=== PATIENT | female | born 1985 | race Two or more races ===

== ENCOUNTER 2025-05-31 11:06 | Inpatient (IN) | payer MEDICAID ==
[~2025-05-31] VITALS: Ht 149.9 cm; Wt 100.0 kg
--- NOTE | 2025-05-31 11:32 | ED.PDOC ---
HPI Comments This is a 40 year old female ELLI presenting to the ED with chief complaint of chest pain. Patient reports that she had started to experience left sided, sharp, 8/10 chest pain this morning with associated radiation to the left arm and SOB. EMS relays that they arrived about 5 minutes later and provided 2 doses of Nitroglycerin and 324mg of ASA with complete resolution of her pain noted. Patient denies any dizziness, headache, N/V, abdominal pain, or cough. Chief Complaint: Chest Pain Time Seen by MD: 11:28 Reviewed Notes: Nurses Notes, Developmental Services Worker Notes, Medications, Allergies Allergies: Coded Allergies: Penicillins (Verified Allergy, Severe, 05/31/25) Information Source: Patient, Emergency Med Personnel Mode of Arrival: EMS Severity: Moderate Timing: Hours Duration: Since onset Prehospital treatment: ASA, NTG Location: Chest (L) Radiation: Arm (L) Quality: Sharp Onset: At Rest Cardiac Risk Factors: Family History PE Risk Factors: None Past Medical History PAST MEDICAL HISTORY: Denies Surgical History: , Tubal Ligation TEMPERATURE CONTROL INSPECTOR History: No Pertinent TEMPERATURE CONTROL INSPECTOR History Family History Family History: Reviewed,noncontributory to illness, Family hx of heart [place] Social History Smoker: Non-Smoker Alcohol: Denies ETOH Use Drugs: Denies Drug Use Lives In: Home Constitutional: denies: chills, diaphoresis, fatigue, fever, malaise, sweats, weakness, others EENTM: denies: blurred vision, double vision, ear bleeding, ear discharge, ear drainage, ear pain, ear ringing, eye pain, eye redness, hearing loss, mouth pain, mouth swelling, nasal discharge, nose bleeding, nose congestion, nose pain, photophobia, tearing, throat pain, throat swelling, voice changes, others Respiratory: reports: shortness of breath; denies: cough, hemoptysis, orthopnea, SOB at rest, SOB with excertion, stridor, wheezing, others Cardiovascular: reports: chest pain, left arm pain; denies: dizzy spells, diaphoresis, Dyspnea on exertion, edema, irregular heart beat, lightheadedness, palpitations, PND, syncope, others Gastrointestinal: denies: abdomen distended, abdominal pain, blood streaked bowels, constipated, diarrhea, dysphagia, difficulty swallowing, hematemesis, melena, nausea, poor appetite, poor fluid intake, rectal bleeding, rectal pain, vomiting, others Genitourinary: denies: abnormal vagina bleeding, burning, dyspareunia, dysuria, flank pain, frequency, hematuria, incontinence, pain, , vagina discharge, urgency, others Neurological: denies: dizziness, fainting, headache, left sided numbness, left sided weakness, numbness, paresthesia, pre-existing deficit, right sided numbness, right sided weakness, seizure, speech problems, tingling, tremors, weakness, others Musculoskeletal: denies: back pain, gout, joint pain, joint swelling, muscle pain, muscle stiffness, neck pain, others Integumetry: denies: bruises, change in color, change in hair/nails, dryness, laceration, lesions, lumps, rash, wounds, others Allergic/Immunocompromised: denies: Difficulty Healing, Frequent Infections, Hives, Itching, others Hematologic/Lymphatic: denies: anemia, blood clots, easy bleeding, easy bruising, swollen glands, others Endocrine: denies: excessive hunger, excessive sweating, excessive thirst, excessive urination, flushing, intolerance to cold, intolerance to heat, unexplained weight gain, unexplained weight loss, others Psychiatric: denies: anxiety, bipolar disorder, depression, hopeless, panic disorder, schizophrenia, sleepless, suicidal, others All Other Systems: Reviewed and Negative Physical Exam General Appearance: Moderate Distress, Obese HEENT: Normal ENT Inspection, Pharynx Normal, TMs Normal Neck: Full Range of Motion, Non-Tender, Normal, Normal Inspection Respiratory: Chest Non-Tender, Lungs Clear, No Accessory Muscle Use, No Respiratory Distress, Normal Breath Sounds Cardiovascular: No Edema, No JVD, No Murmur, No Gallop, Normal Peripheral Pulses, Regular Rate/Rhythm Breast Exam: Deferred Gastrointestinal: No Organomegaly, Non Tender, No Pulsatile Mass, Normal Bowel Sounds, Soft Genitalia: Deferred Pelvic: Deferred Rectal: Deferred Extremities: No calf tenderness, Normal capillary refill, Normal inspection, Normal range of motion, Non-tender, No pedal edema Musculoskeletal : Apperance: Normal Neurologic: Alert, finisher wallboard and plasterboard II-XII nml as Tested, No Motor Deficits, Normal Affect, Normal Mood, No Sensory Deficits Cerebellar Function: Normal Reflexes: Normal Skin: Dry, Normal Color, Warm Lymphatic: No Adenopathy EKG EKG : Pulse Rate (adult): 81 [place]: Normal Cardiac Rhythm: NSR Block: None Hypertrophy: None ST: Normal Was a procedure done? Was a procedure done?: No CP Differential Dx Differential Diagnosis: Angina Differential Diagnosis: CHF Differential Diagnosis: Angina, Gastritis, Pericarditis X-Ray, Labs, Meds, VS Vital Signs Date Time Temp Pulse Resp B/P (MAP) Pulse Ox O2 Delivery O2 Flow Rate FiO2 05/31/25 11:51 59 05/31/25 11:32 81 05/31/25 11:11 61 05/31/25 11:06 98.6 74 16 153/81 97 98.6 Lab Test 05/31/25 11:30 Range/Units White Blood Count 8.3 4.4-10.8 10^3/uL Red Blood Count 5.49 H 4.0-5.20 10^6/uL Hemoglobin 13.5 12.2-16.2 g/dL Hematocrit 41.2 36.0-46.0 % Mean Corpuscular Volume 75.2 L 80.0-100.0 fL Mean Corpuscular Hemoglobin 24.7 L 28.0-32.0 pg Mean Corpuscular Hemoglobin Concent 32.8 32.0-36.0 g/dL Red Cell Distribution Width 29.8 H 11.8-14.3 % Platelet Count 316 140-450 10^3/uL Mean Platelet Volume 8.5 6.9-10.8 fL Neutrophils (%) (Auto) 68.9 37.0-80.0 % Lymphocytes (%) (Auto) 22.1 10.0-50.0 % Monocytes (%) (Auto) 6.4 0.0-12.0 % Eosinophils (%) (Auto) 2.2 0.0-7.0 % Basophils (%) (Auto) 0.4 0.0-2.0 % Neutrophils # (Auto) 5.7 1.6-8.6 10 ^3/uL Lymphocytes # (Auto) 1.8 0.4-5.4 10 ^3/uL Monocytes # (Auto) 0.5 0-1.3 10 ^3/uL Eosinophils # (Auto) 0.2 0-0.8 10 ^3/uL Basophils # (Auto) 0 0-0.2 10 ^3/uL Nucleated Red Blood Cells 0.1 % D-Dimer, Quantitative 0.43 0.0-0.49 mg/L FEU Sodium Level 139 136-145 mmol/L Potassium Level 4.0 3.5-5.1 mmol/L Chloride Level 107 98-107 mmol/L Carbon Dioxide Level 24 20-31 mmol/L Anion Gap 8 5-15 Blood Urea Nitrogen 8 L 9-23 mg/dL Creatinine 0.63 0.550-1.02 mg/dL Glomerular Filtration Rate Calc 114 >90 mL/min BUN/Creatinine Ratio 12.7 10.0-20.0 Serum Glucose 93 74-106 mg/dL Calcium Level 9.2 8.7-10.4 mg/dL Troponin I High Sensitivity < 3 L </=34 ng/L Chest XR indicates: No acute cardiopulmonary disease. IV Hep-Lock was established The patient already received aspirin in the emergency department's The patient also received nitroglycerin x2 EN route. The nitroglycerin seems to have helped and we are concerned that this chest pain is cardiac in nature The patient will be admitted and we will get a Cardiology consult The D-dimer is within normal range The patient's CBC is within normal range The patient is being admitted at this time Images Reviewed?: Images reviewed and evaluated by me Time of 1ST Reevaluation: 12:51 Reevaluation 1ST: Unchanged Patient Education/Counseling: Diagnosis, Treatment, Prognosis Family Education/Counseling: No Family Present SEPSIS Sepsis Screen Date sepsis recognized/suspect: May 31, 2025 Time Sepsis recognized/suspect: 1119 Recent Procedure: No On Antibiotic Therapy: No Respiratory Rate >20: No Heart Rate >90: No Temp<36 C (96.8 F) or >38.3 C: No SBP <90 or MAP <65 mmHG: No New Acute Mental Status Change: No Is the patient on CPAP, BIPAP,: No Physician Orders Electrocardigram (05/31/25 11:15) Troponin-I Hs (05/31/25 12:15) Troponin-I Hs (05/31/25 14:15) Electrocardigram (05/31/25 12:15) Electrocardigram (05/31/25 14:15) Chest Two Views Routine (05/31/25 11:24) Heplock Iv (05/31/25 ) Vital Signs Date Time Temp Pulse Resp B/P (MAP) Pulse Ox O2 Delivery O2 Flow Rate FiO2 05/31/25 11:51 59 05/31/25 11:32 81 05/31/25 11:11 61 05/31/25 11:06 98.6 74 16 153/81 97 98.6 Laboratory Tests Test 05/31/25 11:30 White Blood Count 8.3 10^3/uL (4.4-10.8) Departure 1 Departure Time of Disposition: 12:50 Impression: Primary Impression: Acute coronary syndrome Disposition: ADMITTED INPATIENT Admit to: Tele Condition: Fair Discharged With: Self Critical Care Note Critical Care Time?: No Stability Stability form required: Yes Unstable for transfer: Telemetry monitoring (Telemetry monitoring required), ED Physician Assesment (Clinical assesment) Heart Score Heart Score: Heart Score Response (Comments) Value History Highly Suspicious 2 EKG Normal 0 Age <45 0 Risk Factors 1 or 2 risk factors 1 Troponin Normal limit 0 Total 3 I personally scribed for JOSE BRANHAM MD ([email or web address]) on 05/31/25 at 11:32. Electronically submitted by Alireza Chacko ([email or web address]). I personally scribed for JOSE BRANHAM MD ([email or web address]) on 05/31/25 at 11:55. Electronically submitted by Alireza Chacko ([email or web address]). JOSE BRANHAM MD May 31, 2025 11:32
[2025-05-31 11:52] LABS: Mean Corpuscular Hemoglobin 24.7 pg (28.0-32.0)
--- NOTE | 2025-05-31 11:53 | DVH ---
EXAM: XY CHEST TWO VIEWS ROUTINE CLINICAL HISTORY: CP COMPARISON: None TECHNIQUE: Frontal and lateral view of the chest was obtained FINDINGS: Lines and Tubes: None Lungs: No focal consolidation. Pleura: No effusion. No pneumothorax. Cardiomediastinal contours: Unremarkable Bones: No acute osseous abnormality. IMPRESSION: No acute cardiopulmonary disease.
[2025-05-31 11:54] LABS: Hematocrit 41.2 % (36.0-46.0); Hemoglobin 13.5 g/dL (12.2-16.2); Mean Corpuscular Volume 75.2 fL (80.0-100.0); Nucleated Red Blood Cells % 0.1 %
[2025-05-31 12:01] LABS: Chloride 107 mmol/L (98-107); Potassium 4.0 mmol/L (3.5-5.1); Sodium 139 mmol/L (136-145)
[2025-05-31 12:03] LABS: Anion Gap 8 (5-15); Calcium 9.2 mg/dL (8.7-10.4); Carbon Dioxide 24 mmol/L (20-31)
[2025-05-31 12:07] LABS: Glucose 93 mg/dL (74-106)
[2025-05-31 12:08] LABS: BUN/Creatinine Ratio 12.7 (10.0-20.0); Blood Urea Nitrogen 8 mg/dL (9-23)
[2025-05-31] MEDS ORDERED: MORPHINE SULFATE INJ 2 MG/ml SYRG IV PRN ×2 (14:00)
[2025-05-31] MEDS ORDERED: ONDANSETRON HCL 4 MG/2 ML VIAL IV PRN (14:00)
[2025-05-31] MEDS ORDERED: ACETAMINOPHEN 325 MG TAB PO PRN (14:00)
[2025-05-31] MEDS ORDERED: NITROGLYCERIN 0.4 MG SL TAB SL PRN (14:00)
[2025-05-31 14:57] LABS: Triglycerides 75 mg/dL (< 150)
[2025-05-31 14:59] LABS: Cholesterol 155 mg/dL (< 200); HDL Cholesterol 55 mg/dL (40-59)
[2025-05-31 15:02] VITALS: BP 140/87; PULSE 69; RESP 18; TEMP 98.3; O2SAT 96
[2025-05-31 15:04] LABS: Alanine Aminotransferase 21.0 U/L (7-40); Albumin 4.2 g/dL (3.2-4.8); Alkaline Phosphatase 85.0 U/L (46-116); Magnesium 2.0 mg/dL (1.6-2.6); Total Protein 7.1 g/dL (5.7-8.2)
[2025-05-31 15:05] LABS: Bilirubin, Direct 0.1 mg/dL (<0.3); Bilirubin, Total 0.4 mg/dL (0.2-1.0)
[2025-05-31 15:13] LABS: INR 0.99 (0.9-1.15); Partial Thromboplastin Time 28.1 SEC (24.5-34.5); Prothrombin Time 10.5 sec (9.3-11.8)
[2025-05-31] MEDS: SODIUM CHLOR 0.9% PF (SALINE LOCK) 10ML VIAL/SYR IV SCH (15:40)
--- NOTE | 2025-05-31 18:16 | DVHHPRES ---
History of Present Illness Resident Creating Document: ROBI YAÑEZ RESIDENT History of Present Illness LETI IRIZARRY Is a 40 years old female with no significant PMH presented to the ED with a chest pain which started on the day of admission. Patient reported she has been doing laundry, Doppler sudden onset of chest pain which is central to left and radiating to left arm which is relieved by nitroglycerin 2 shortness in EMS. Patient reported pain is initially showed with the some pressure clinical, deep breathing exacerbated the pain at the time of onset, no other associated features. Patient denies recent flu-like symptoms, shortness of breath, recent travel recent sick contacts. PMH: Not significant PSH: Tubal ligations and 2 C sections Family history: Noncontributory Personal history: Lives with the family. Denies smoking, alcohol and other drug abuse exhibit Allergies: Penicillins Home medications: None Patient seen and examined at the bedside. Patient currently reporting having chest pain but improved slightly due to nitroglycerin. Troponins x2 negative. Review of Systems Allergies: Coded Allergies: Penicillins (Verified Allergy, Severe, 05/31/25) Medications Current Medications Medications Dose Ordered Sig/Caroline Route Start Time Stop Time Status Last Admin Dose Admin Sodium Chloride 10 ml Q8HR IV 05/31/25 14:00 05/31/25 15:40 10 ML Ondansetron HCl 4 mg Q4HP PRN IV 05/31/25 14:00 Enoxaparin Sodium 40 mg DAILY SC 06/01/25 10:00 Acetaminophen 650 mg Q6HP PRN PO 05/31/25 14:00 Morphine Sulfate 2 mg Q4HPRN PRN IV 05/31/25 14:00 Nitroglycerin 0.4 mg Q5MINP PRN SL 05/31/25 14:00 Morphine Sulfate 2 mg Q30M PRN IV 05/31/25 14:00 Exam Vital Signs Vital Signs Date Time Temp Pulse Resp B/P (MAP) Pulse Ox O2 Delivery O2 Flow Rate FiO2 05/31/25 15:02 98.3 69 18 140/87 (104) 96 98.3 Exam Pt is lying on bed General Appearance: Alert, Oriented X3, Cooperative, distress due to chest pain HEENT: Atraumatic, Mucous membranes moist/pink Respiratory: Clear to auscultation, Normal air movement, No added sounds Cardiovascular: Regular rate, Normal S1, Normal S2, No murmurs Abdominal: Active bowel sounds, Soft, no distention, no tenderness Extremities: No edema, Normal pulses, No tenderness/swelling Skin: No Significant rash, except past surgical scars Neuro: Normal speech, sensorimotor deficits none Psych/Mental Status: Mental status NL, Mood NL Nurse was there as rn intern during examination Labs/Xrays Labs Test 05/31/25 13:11 05/31/25 11:30 Range/Units Troponin I High Sensitivity < 3 L </=34 ng/L White Blood Count 8.3 4.4-10.8 10^3/uL Red Blood Count 5.49 H 4.0-5.20 10^6/uL Hemoglobin 13.5 12.2-16.2 g/dL Hematocrit 41.2 36.0-46.0 % Mean Corpuscular Volume 75.2 L 80.0-100.0 fL Mean Corpuscular Hemoglobin 24.7 L 28.0-32.0 pg Mean Corpuscular Hemoglobin Concent 32.8 32.0-36.0 g/dL Red Cell Distribution Width 29.8 H 11.8-14.3 % Platelet Count 316 140-450 10^3/uL Mean Platelet Volume 8.5 6.9-10.8 fL Neutrophils (%) (Auto) 68.9 37.0-80.0 % Lymphocytes (%) (Auto) 22.1 10.0-50.0 % Monocytes (%) (Auto) 6.4 0.0-12.0 % Eosinophils (%) (Auto) 2.2 0.0-7.0 % Basophils (%) (Auto) 0.4 0.0-2.0 % Neutrophils # (Auto) 5.7 1.6-8.6 10 ^3/uL Lymphocytes # (Auto) 1.8 0.4-5.4 10 ^3/uL Monocytes # (Auto) 0.5 0-1.3 10 ^3/uL Eosinophils # (Auto) 0.2 0-0.8 10 ^3/uL Basophils # (Auto) 0 0-0.2 10 ^3/uL Nucleated Red Blood Cells 0.1 % Prothrombin Time 10.5 9.3-11.8 sec Prothrombin Time INR 0.99 0.9-1.15 Activated Partial Thromboplast Time 28.1 24.5-34.5 SEC D-Dimer, Quantitative 0.43 0.0-0.49 mg/L FEU Sodium Level 139 136-145 mmol/L Potassium Level 4.0 3.5-5.1 mmol/L Chloride Level 107 98-107 mmol/L Carbon Dioxide Level 24 20-31 mmol/L Anion Gap 8 5-15 Blood Urea Nitrogen 8 L 9-23 mg/dL Creatinine 0.63 0.550-1.02 mg/dL Glomerular Filtration Rate Calc 114 >90 mL/min BUN/Creatinine Ratio 12.7 10.0-20.0 Serum Glucose 93 74-106 mg/dL Hemoglobin A1c 4.7 <5.7 % A1C Calcium Level 9.2 8.7-10.4 mg/dL Magnesium Level 2.0 1.6-2.6 mg/dL Total Bilirubin 0.4 0.2-1.0 mg/dL Direct Bilirubin 0.1 <0.3 mg/dL Aspartate Amino Transferase (AST) 15 13-40 U/L Alanine Aminotransferase (ALT) 21 7-40 U/L Alkaline Phosphatase 85 46-116 U/L B-Type Natriuretic Peptide 7.57 0-100 pg/mL Total Protein 7.1 5.7-8.2 g/dL Albumin 4.2 3.2-4.8 g/dL Triglycerides Level 75 < 150 mg/dL Cholesterol Level 155 < 200 mg/dL LDL Cholesterol 104 H < 100 mg/dL HDL Cholesterol 55 40-59 mg/dL Thyroid Stimulating Hormone (TSH) 0.65 0.55-4.78 uIU/mL SEPSIS Sepsis Screen Date sepsis recognized/suspect: May 31, 2025 Time Sepsis recognized/suspect: 1119 Recent Procedure: No On Antibiotic Therapy: No Respiratory Rate >20: No Heart Rate >90: No Temp<36 C (96.8 F) or >38.3 C: No SBP <90 or MAP <65 mmHG: No New Acute Mental Status Change: No Is the patient on CPAP, BIPAP,: No Physician Orders Electrocardigram (05/31/25 11:15) Electrocardigram (05/31/25 12:15) Electrocardigram (05/31/25 14:15) Chest Two Views Routine (05/31/25 11:24) Heplock Iv (05/31/25 ) Admit (05/31/25 13:49) Allergies (05/31/25 13:49) Code Status (05/31/25 13:49) Sodium Chloride Lock (Saline Lock Ns) (05/31/25 14:00) Ondansetron Hcl (Zofran) (05/31/25 14:00) Enoxaparin Sodium (Lovenox) (06/01/25 10:00) Complete Blood Count (06/01/25 04:00) Comprehensive Metabolic Panel (06/01/25 04:00) Cardiac Diet-2gna,Lofat,Lochol (05/31/25 Dinner) Condition: Fair (05/31/25 13:49) Acetaminophen Tablet (Tylenol Tablet) (05/31/25 14:00) Morphine Sulfate Injection (05/31/25 14:00) Nitroglycerin Sublingual (Ntrostat Subli (05/31/25 14:00) Morphine Sulfate Injection (05/31/25 14:00) Oxygen By Nasal Cannula (05/31/25 13:49) Stat Ekg For Chest Pain (05/31/25 13:49) Notify Md Of Changes From Base (05/31/25 13:49) Mission Coordinator For 24 Hours (05/31/25 13:49) Emergency Dysrhythmia Protocol (05/31/25 13:49) Rhythm Strips Once Every Shift (05/31/25 13:49) Drug Screen (05/31/25 14:33) Urinalysis (05/31/25 14:33) Vital Signs Date Time Temp Pulse Resp B/P (MAP) Pulse Ox O2 Delivery O2 Flow Rate FiO2 05/31/25 15:02 98.3 69 18 140/87 (104) 96 98.3 05/31/25 11:51 59 05/31/25 11:32 81 05/31/25 11:11 61 05/31/25 11:06 98.6 74 16 153/81 97 98.6 Laboratory Tests Test 05/31/25 11:30 White Blood Count 8.3 10^3/uL (4.4-10.8) Medications Medications Dose Ordered Sig/Caroline Route Start Time Stop Time Status Last Admin Dose Admin Sodium Chloride 10 ml Q8HR IV 05/31/25 14:00 05/31/25 15:40 10 ML Assessment/Plan Assessment/Plan # Chest pain rule out ACS telemetry EKG Troponins Chest pain protocol Lipid panel GI PPX: not indicated VTE ppx: Lovenox Diet: cardiac diet Currently patient is unstable for transfer to [facility]. Goals of care addressed with the patient for more than 27 minutes: Full code status Case discussed with , patient and nurse Plan discussed with: Patient My Orders Orders - ROBI YAÑEZ Procedure Category Date Status Time Admit ADMIT 05/31/25 Transmitted 13:49 Allergies MELVI 05/31/25 In Process 13:49 Code Status CODE 05/31/25 Transmitted 13:49 Sodium Chloride Lock PHA 05/31/25 In Process (Saline Lock Ns) 14:00 Ondansetron Hcl PHA 05/31/25 In Process (Zofran) 14:00 Enoxaparin Sodium PHA 06/01/25 In Process (Lovenox) 10:00 Complete Blood Count LAB 06/01/25 Verified 04:00 Comprehensive LAB 06/01/25 Verified Metabolic Panel 04:00 Cardiac DIET 05/31/25 Transmitted Diet-2gna,Lofat,Lochol Dinner Condition: Fair MELVI 05/31/25 In Process 13:49 Acetaminophen Tablet PHA 05/31/25 In Process (Tylenol Tablet) 14:00 Morphine Sulfate PHA 05/31/25 In Process Injection 14:00 Nitroglycerin PHA 05/31/25 In Process Sublingual (Ntrostat 14:00 Morphine Sulfate PHA 05/31/25 In Process Injection 14:00 Oxygen By Nasal RT 05/31/25 Transmitted Cannula 13:49 Stat Ekg For Chest MELVI 05/31/25 In Process Pain 13:49 Notify Of Changes MELVI 05/31/25 In Process From Base 13:49 Mission Coordinator For MELVI 05/31/25 In Process 24 Hours 13:49 Emergency Dysrhythmia MELVI 05/31/25 In Process Protocol 13:49 Rhythm Strips Once MELVI 05/31/25 In Process Every Shift 13:49 Drug Screen LAB 05/31/25 Logged 14:33 Urinalysis LAB 05/31/25 Logged 14:33 ROBI YAÑEZ RESIDENT May 31, 2025 18:16
--- NOTE | 2025-06-01 07:04 | DVHDSRES ---
Discharge Summary Date of Admission Resident Creating Document: ROBI YAÑEZ RESIDENT May 31, 2025 at 13:49 Date of Discharge: May 31, 2025 Admitting Diagnosis Chest pain Labs/Diagnostic Data: Laboratory Results Test 05/31/25 13:11 05/31/25 11:30 Troponin I High Sensitivity < 3 ng/L (</=34) White Blood Count 8.3 10^3/uL (4.4-10.8) Red Blood Count 5.49 10^6/uL (4.0-5.20) Hemoglobin 13.5 g/dL (12.2-16.2) Hematocrit 41.2 % (36.0-46.0) Mean Corpuscular Volume 75.2 fL (80.0-100.0) Mean Corpuscular Hemoglobin 24.7 pg (28.0-32.0) Mean Corpuscular Hemoglobin Concent 32.8 g/dL (32.0-36.0) Red Cell Distribution Width 29.8 % (11.8-14.3) Platelet Count 316 10^3/uL (140-450) Mean Platelet Volume 8.5 fL (6.9-10.8) Neutrophils (%) (Auto) 68.9 % (37.0-80.0) Lymphocytes (%) (Auto) 22.1 % (10.0-50.0) Monocytes (%) (Auto) 6.4 % (0.0-12.0) Eosinophils (%) (Auto) 2.2 % (0.0-7.0) Basophils (%) (Auto) 0.4 % (0.0-2.0) Neutrophils # (Auto) 5.7 10 ^3/uL (1.6-8.6) Lymphocytes # (Auto) 1.8 10 ^3/uL (0.4-5.4) Monocytes # (Auto) 0.5 10 ^3/uL (0-1.3) Eosinophils # (Auto) 0.2 10 ^3/uL (0-0.8) Basophils # (Auto) 0 10 ^3/uL (0-0.2) Nucleated Red Blood Cells 0.1 % Prothrombin Time 10.5 sec (9.3-11.8) Prothrombin Time INR 0.99 (0.9-1.15) Activated Partial Thromboplast Time 28.1 SEC (24.5-34.5) D-Dimer, Quantitative 0.43 mg/L FEU (0.0-0.49) Sodium Level 139 mmol/L (136-145) Potassium Level 4.0 mmol/L (3.5-5.1) Chloride Level 107 mmol/L (98-107) Carbon Dioxide Level 24 mmol/L (20-31) Anion Gap 8 (5-15) Blood Urea Nitrogen 8 mg/dL (9-23) Creatinine 0.63 mg/dL (0.550-1.02) Glomerular Filtration Rate Calc 114 mL/min (>90) BUN/Creatinine Ratio 12.7 (10.0-20.0) Serum Glucose 93 mg/dL (74-106) Hemoglobin A1c 4.7 % A1C (<5.7) Calcium Level 9.2 mg/dL (8.7-10.4) Magnesium Level 2.0 mg/dL (1.6-2.6) Total Bilirubin 0.4 mg/dL (0.2-1.0) Direct Bilirubin 0.1 mg/dL (<0.3) Aspartate Amino Transferase (AST) 15 U/L (13-40) Alanine Aminotransferase (ALT) 21 U/L (7-40) Alkaline Phosphatase 85 U/L (46-116) B-Type Natriuretic Peptide 7.57 pg/mL (0-100) Total Protein 7.1 g/dL (5.7-8.2) Albumin 4.2 g/dL (3.2-4.8) Triglycerides Level 75 mg/dL (< 150) Cholesterol Level 155 mg/dL (< 200) LDL Cholesterol 104 mg/dL (< 100) HDL Cholesterol 55 mg/dL (40-59) Thyroid Stimulating Hormone (TSH) 0.65 uIU/mL (0.55-4.78) Other Laboratory Tests 05/31/25 11:30 Brief Hx & Hospital Course: Yolande Linares, a 40-year-old female with no significant past medical history, presented to the Emergency Department with acute onset chest pain that began earlier in the day while doing laundry. The pain was described as central to left-sided, radiating to the left arm, and initially associated with a pressure- like sensation. It was exacerbated by deep breathing and partially relieved by nitroglycerin administered by EMS. She denied any recent flu-like symptoms, shortness of breath, travel, or sick contacts. On evaluation, the patient continued to report chest pain, though slightly improved. Troponin levels were negative on two occasions, and she was placed on telemetry with an EKG, lipid panel, and chest pain protocol initiated to rule out acute coronary syndrome (ACS). Despite ongoing evaluation and medical management, the patient expressed a desire to leave the Emergency Department against medical advice (AMA). Dr. Moody Villagomez was notified of the patients decision. The patient was thoroughly counseled on the risks of leaving prior to completion of her evaluation and treatment, including the potential for worsening symptoms or missed diagnosis. She verbalized understanding of these risks and was advised to return to the ED immediately if symptoms worsen or fail to improve. At the time of admission patient was unstable to transfer. Condition at Discharge: Undetermined Final Diagnosis/Problems List Chest pain rule out ACS Discharge Disposition: AMA Discharge Statement: "Patient was advised to return to the ER or call 911 if any headaches, dizziness, shortness of breath, chest pain, abdominal pain, bleeding, fevers, or worsening of medical condition. Patient was counseled about treatment plan, medications, possible side effects, patientverbalized understanding. All questions were answered to the best of my ability. This discharge took greater then 30 minutes in planning, reviewing documentation, counseling the patient, and discussing with other team members." ASSESSMENT ASSESSMENT Assessment ROBI YAÑEZ RESIDENT Jun 01, 2025 07:04
[2025-06-01] MEDS ORDERED: ENOXAPARIN SOD 40 MG/0.4 ML SYRINGE SC SCH (10:00)
--- NOTE | 2025-06-01 12:16 | ECG ---
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
--- NOTE | 2025-06-03 11:39 | ECG ---
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
== END 2025-05-31 19:45 | disposition left against medical advice (07) | DRG 198 ==
LOC: ER 11:06 → EDBD 11:06 → OVERFLOW 13:49
PROVIDERS: ADMIT Internal Medicine; ATTEND Internal Medicine
DX: I24.9 Acute ischemic heart disease, unspecified (principal); Z53.29 Procedure and treatment not carried out because of patient's decision for other reasons; Z79.899 Other long term (current) drug therapy; Z98.891 History of uterine scar from previous surgery; Z98.51 Tubal ligation status; Z88.0 Allergy status to penicillin
CPT/HCPCS: 36415; 71046; 80048; 80061; 80076; 83036; 83735; 83880; 84443; 84484; 85025; 85379; 85610; 85730; 93005; G0378